=== PATIENT | male | born 1960 | race Asian ===

== ENCOUNTER 2021-07-17 07:33 | Day surgery (SDC) | payer OTHER ==
[2021-07-17 09:39] LABS: INR 0.97 (0.87-1.13)
[2021-07-17 09:40] LABS: Partial Thromboplastin Time 27.1 Sec. (24.2-36.6)
[2021-07-17] MEDS ORDERED: LIDOCAINE (1%) 10 MG/1 ML VIAL 20 ML MDV ONE (10:35)
--- NOTE | 2021-07-17 11:47 | Short Stay Summary ---
Short Stay Documentation Date of service: 07/17/21 Narrative H&P: enlarged lymph nodes in left inguinal region - History Principal diagnosis: lymphadenopathy Past Medical History: other (no history of cancer or infection) - Allergies and Medications Current Medications: Allergies No Known Allergies Allergy (Verified 07/17/21 08:17) Home Medications Medication Instructions Recorded Confirmed Last Taken Type Aspirin EC [Halfprin EC] 81 mg PO QDAY 07/17/21 07/17/21 07/10/21 History 81 mg Saxagliptin HCl/Metformin HCl 1 tab PO DAILY 07/17/21 07/17/21 07/16/21 History [Kombiglyze XR 5-500 mg] 1 tab - Physical exam General appearance: no acute distress Male Genitourinary: left inguinal lymphadenopathy - Brief post op/procedure progress note Date of procedure: 07/17/21 Pre-op diagnosis: left inguinal adenopathy Post-op diagnosis: same Procedure: US lymph node biopsy Anesthesia: local Findings: mildly enlarged left inguinal LNs Surgeon: MICHEL ACHARYA Estimated blood loss: none Pathology: list (18G biopsy x 2 in formalin, 18G biopsy x 1 in RPMI) Condition: stable - Hospital course Hospital course: uneventful - Disposition Condition at discharge: Good Disposition: 01 HOME / SELF CARE / HOMELESS Short Stay Discharge Plan Follow up with: VIRGILIO MUNOZ MD [Primary Care Provider] - 7 Days
--- NOTE | 2021-07-17 11:55 | Ultrasound Report ---
ULTRASOUND-GUIDED LYMPH NODE BIOPSY HISTORY: Abnormal lymph node. Left inguinal adenopathy COMPARISON: None. Correlation is made with an ultrasound report from an outlying facility. PROCEDURE: The risks (including but not limited to bleeding and infection) and benefits were explain ed to the patient and informed consent was obtained. A time out procedure was performed. The proced ure site was prepped and draped in the usual sterile fashion and lidocaine was used for local anesthe mariajose. Using ultrasound guidance, a 17-gauge introducer needle was advanced to the leading edge of an enlarg ed left inguinal lymph node measuring 3.3 x 1.1 x 2.1 cm. 2 18-gauge core biopsies measuring 1.3 cm w ere placed in formalin. A single 18-gauge core biopsy was placed in RPMI. The patient tolerated the procedure well with no complications. IMPRESSION: Successful ultrasound-guided biopsy of the left inguinal adenopathy. Signer Name: Jong Ontiveros Jr, MD Signed: 07/17/2021 11:50 AM Workstation Name: [id number]
[2021-07-17 12:08] VITALS: BP 135/66
== END 2021-07-17 12:30 | disposition home or self-care (01) ==
LOC: CATHLABREC 07:33 → US 07:33 → EDSTATUS 09:00 → CATHLABREC 12:30
PROVIDERS: ATTEND Surgery
DX: R59.0 Localized enlarged lymph nodes (principal); Z79.82 Long term (current) use of aspirin; Z79.899 Other long term (current) drug therapy; Z98.890 Other specified postprocedural states
CPT/HCPCS: 36415; 38505; 76942; 82962; 85610; 85730; 88184; 88185; 88305; 88341; 88342; J3490